=== PATIENT | male | born 1995 | race Caucasian/White ===

== ENCOUNTER → 2018-10-13 | Outpatient (CLI) | payer OTHER | LOC: M.ULTRA 14:55 | DX: R59.1 Generalized enlarged lymph nodes (principal) ==

== ENCOUNTER 2019-11-07 11:51 | Emergency (ER) | payer OTHER ==
[~2019-11-07] VITALS: Ht 170.2 cm; Wt 56.7 kg
[2019-11-07] MEDS ORDERED: ADVAIR 100-501 EACH INH (12:04)
[2019-11-07] MEDS ORDERED: PROAIR HFA8.5 GM INH ×2 (12:05→13:05)
[2019-11-07 12:31] LABS: ABSOLUTE EOSINOPHILS 0.1 thou/uL (0.0-0.7); ABSOLUTE LYMPHOCYTES 1.1 thou/uL (0.8-5.3); ABSOLUTE MONOCYTES 0.3 thou/uL (0.0-1.2); ABSOLUTE NEUTROPHILS 2.1 thou/uL (1.6-8.1); BASOPHILS 0.9 %; EOSINOPHILS 3.5 %; HEMATOCRIT 47.1 % (42.0-52.0); HEMOGLOBIN 16.5 gm/dL (14.0-18.0); LYMPHOCYTES 29.9 %; MCH 31.1 pg (26.0-34.0); MCHC 35.1 g/dL (28.0-37.0); MCV 88.6 fL (80.0-100.0); MONOCYTES 7.9 %; MPV 8.4 fl. (7.2-11.1); NUCLEATED RBCS 0 /100WBC; PLATELET COUNT* 216 thou/uL (150-400); POLYS 57.8 %; RBC 5.32 mil/uL (4.50-6.00); RDW-CV 12.3 % (10.5-14.5); WBC 3.7 thou/uL (4.0-11.0)
[2019-11-07 12:38] LABS: CALCIUM 9.7 mg/dL (8.5-10.1); POTASSIUM 3.8 mmol/L (3.5-5.1)
[2019-11-07 12:43] LABS: ALBUMIN 4.8 g/dL (3.4-5.0); TOTAL BILIRUBIN 0.8 mg/dL (<0.1-1.0); TOTAL PROTEIN 7.8 g/dL (6.4-8.2)
[2019-11-07] MEDS ORDERED: VISTARIL 25 MG25 M1 PO (13:05)
[2019-11-07 13:25] VITALS: BP 124/72
--- NOTE | 2019-11-08 17:03 | EKG ---
[place] [address] ELECTROCARDIOGRAM REPORT Name: HILARIA ROBERSON Room: 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 <ELECTRONICALLY SIGNED> By: Ramez Jackson MD, [facility] 11/08/19 1701 15 121 Ramez Jackson MD, [facility] /EPI
== END 2019-11-07 13:25 | disposition home or self-care (01) ==
LOC: M.ERS 11:51
PROVIDERS: Physician Assistant
DX: J45.909 Unspecified asthma, uncomplicated (principal); F41.9 Anxiety disorder, unspecified; Z76.0 Encounter for issue of repeat prescription; M19.90 Unspecified osteoarthritis, unspecified site

== ENCOUNTER → 2020-01-24 | Outpatient (CLI) | payer OTHER ==
[~2020-01-24] MED LIST: ADVAIR 100-501 EACH INH; PROAIR HFA8.5 GM INH; VISTARIL 25 MG25 M1 PO
== END ==
LOC: M.ULTRA 07:50
PROVIDERS: ATTEND Registered Nurse Diabetes Educator
DX: K30 Functional dyspepsia (principal); R11.0 Nausea; R63.4 Abnormal weight loss

== ENCOUNTER → 2020-05-23 | Outpatient (CLI) | payer BC | LOC: M.RAD 13:37 | PROVIDERS: ATTEND Registered Nurse Diabetes Educator | DX: M25.571 Pain in right ankle and joints of right foot (principal) ==